=== PATIENT | female | born 2000 | race Caucasian/White ===

== ENCOUNTER 2022-08-09 20:05 | Emergency (ER) | payer SELFPAY ==
[2022-08-09 20:06] VITALS: BP 149/110; PULSE 80; RESP 16; TEMP 36.2; O2SAT 100; BMI 36.0
--- NOTE | 2022-08-09 20:21 | RAD_ITS ---
STUDY: X-RAY CHEST REASON FOR EXAM: Female, 22 years old. Chest pain while breathing. Cough for one week. TECHNIQUE: PA and lateral views of the chest. COMPARISON: None. FINDINGS: The lungs are clear and expanded. There is no demonstrated pleural abnormality. Normal size heart. Normal mediastinum and artie. Normal visualized pulmonary arteries. Normal visualized aortic arch and descending thoracic aorta. Normal visualized thoracic spine. Normal visualized ribs, clavicles, and shoulders. There is no demonstrated abnormality of the visualized soft tissue structures of the upper abdomen. RAD/Chest PA and Lateral IMPRESSION: No acute cardiopulmonary disease. Electronically Signed: Jose Luciano DO at 20:38 EST ,
--- NOTE | 2022-08-09 20:41 | EDS_ITS ---
HPI <JUANCARLOS Wise - Last Filed: 08/09/22 20:53> History of Present Illness Chief Complaint: Chest Other Narrative Narrative: 22-year-old female with no past medical history, tobacco use presents with 1 week of dry cough. She states she will cough somewhat she has posttussive emesis. 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 It still hurts if she takes a deep breath. She has not been short of breath this week. No fever or chills. She smokes around 1/2 PPD. PFSH <JUANCARLOS Wise Last Filed: 08/09/22 20:53> PFSH Home Medications Ventolin HFA 90 mcg/actuation aerosol inhaler (albuterol sulfate) 1 - 2 puff inhalation Q4H PRN PRN wheezing #8 grams 08/09/22 [Rx Last Taken Unknown] benzonatate 200 mg capsule 200 mg PO BID PRN cough 7 days #14 caps 08/09/22 [Rx Last Taken Unknown] Allergy/AdvReac Type Severity Reaction Status Date / Time No Known Allergies Allergy Verified 08/09/22 20:07 Social History Smoking Status: Never smoker ROS <JUANCARLOS Wise Last Filed: 08/09/22 20:53> ROS ED ROS Narrative Constitutional: Negative for fever, chills, malaise. Eyes: Negative for visual change. ENT: Negative for sore throat, ear pain, rhinorrhea. CVS: Positive for chest pain. Negative for palpitations, syncope. Respiratory: Positive for cough. Negative for shortness of breath, orthopnea. GI: Negative for abdominal pain, diarrhea. : Negative for dysuria, hematuria or frequency. Neuro: Negative for headache, motor/sensory dysfunction. Skin: Negative for rash, abscess, or wound. Musc: Negative for joint pain, swelling, trauma. Heme: Negative for easy bruising, bleeding, lymphadenopathy. EXAM <JUANCARLOS Wise Last Filed: 08/09/22 20:53> Physical Exam Narrative Exam Narrative: CONST: Patient sitting in no acute distress. EYES: Normal inspection. ENT: Normal inspection, moist mucous membranes. NECK: Normal inspection. RESP: No respiratory distress, CTAB. Dry cough throughout exam. Chest wall nontender. CVS: Regular rate and rhythm, no murmur, no gallop. ABD: Soft and nontender, no guarding or rebound, nondistended. SKIN: Color normal, no rash, warm, dry, intact. EXTREMITIES: Normal appearance, no pedal edema. NEURO: Oriented x4. PSYCH: Normal affect. Const Vital Signs: 08/09/22 20:06 08/09/22 20:53 Temperature 97.2 F L Temperature Source Temporal Pulse Rate 80 75 Respiratory Rate 16 17 Blood Pressure 149/110 H 122/76 H Blood Pressure Mean 123 Pulse Ox 100 Oxygen Delivery Method Room Air <Fernando Devries MD - Last Filed: 08/09/22 22:54> Physical Exam Const Vital Signs: 08/09/22 20:06 08/09/22 20:53 Temperature 97.2 F L Temperature Source Temporal Pulse Rate 80 75 Respiratory Rate 16 17 Blood Pressure 149/110 H 122/76 H Blood Pressure Mean 123 Pulse Ox 100 Oxygen Delivery Method Room Air MDM <JUANCARLOS Wise - Last Filed: 08/09/22 20:53> [facility] Narrative Medical decision making narrative: Patient has had 1 week of dry cough today after a coughing spell developed chest pain and bilateral rib pain. She appears well and nontoxic. BP in triage was 149/110 however I rechecked it and it is 120/88. Other vital signs are normal, 100% on room air. She is speaking in full sentences in no distress and all lung villanueva are clear. CXR shows no acute process. Since pain started after coughing it is likely muscular in nature. I recommended [id number] analgesia, smoking cessation, and prescribed Tessalon Perles and an MDI inhaler. Patient discharged in stable condition. Radiography Chest X-Ray - ED: 1 View, 2 View, Read by ED Physician, Read by Radiologist, Normal, Heart, Lungs, Mediastinum, Bony Structures and No Acute Disease Diagnostic Testing: Clinical Impression(s) from Imaging Studies Chest X-Ray 08/09/22 20:21 IMPRESSION: No acute cardiopulmonary disease. Electronically Signed: Jose Luciano DO at 20:38 EST Reading Location ID and State: [address] [place] [address] Tel [phone], Service support , ED attending interpretation of 2 view chest shows normal heart size, no acute infiltrate, edema, or effusion. <Fernando Devries MD - Last Filed: 08/09/22 22:54> [facility] Narrative Medical decision making narrative: Patient has had 1 week of dry cough today after a coughing spell developed chest pain and bilateral rib pain. She appears well and nontoxic. BP in triage was 149/110 however I rechecked it and it is 120/88. Other vital signs are normal, 100% on room air. She is speaking in full sentences in no distress and all lung villanueva are clear. CXR, interpreted by the ED physician, shows no evidence of pneumonia, no pneumothorax, shows no acute process. Since pain started after coughing it is likely muscular in nature. I recommended tiuu-jwq-hjopmbn analgesia, smoking cessation, and prescribed Tessalon Perles and an MDI inhaler. Patient discharged in stable condition. I have personally performed a face to face assessment of the patient and have reviewed the BOZENA Note. I performed a substantive portion of the visit including all aspects of the following. My reagan findings include: History is dry cough x1 week, recent URI. Chest and rib pain with coughing. Exam is afebrile. Vital signs noted. No crepitance. Lungs clear to auscultation bilaterally, no wheezing. Medical Decision Making chest x-ray interpreted by myself shows no acute process, no pneumonia. Albuterol MDI for bronchospasm and cough along with Tessalon Perles. Follow-up primary care. Other additions or changes: [None] Radiography Diagnostic Testing: Clinical Impression(s) from Imaging Studies Chest X-Ray 08/09/22 20:21 IMPRESSION: No acute cardiopulmonary disease. Electronically Signed: Jose Luciano DO at 20:38 EST Reading Location ID and State: [address] [place] [address] Tel [phone], Service support , Discharge Plan Triage Chief Complaint: Chest Other ED Midlevel Provider: Diamond Johnson ED Provider: Fernando Devries Dx/Rx/DC Orders Clinical Impression: Viral upper respiratory infection, Chest pain Instructions: ED URI, Viral, No Abx (Adult) Prescriptions: New albuterol sulfate [Ventolin HFA] 90 mcg/actuation HFA aerosol inhaler 1 - 2 puff inhalation Q4H PRN PRN (Reason: wheezing) Qty: 8 0RF Rx Instructions: with spacer benzonatate 200 mg capsule 200 mg PO BID PRN (Reason: cough) 7 Days Qty: 14 0RF Rx Instructions: whatever capsule strength you have in stock is fine Primary Care Provider: Care Physician,No Primary Referrals: NOT,DEFINED [Non-Staff] - Activity Restrictions/Additional Instructions: Your chest x-ray no pneumonia. I suspect you have bronchitis which is from a viral infection. I prescribed Tessalon Perles which is a cough suppressant and an inhaler to use as needed. If symptoms significantly worsen come back to the ER. It can take several days to even a month to have bronchitis clear. Please stop smoking as this will help significantly. Disposition Disposition: Home, Self Care Discharge Date/Time: 08/09/22 20:55
[2022-08-09 20:53] VITALS: BP 122/76; PULSE 75; RESP 17
== END 2022-08-09 20:55 | disposition home or self-care (01) ==
PROVIDERS: Emergency Provider Emergency Medicine; Visit Provider Emergency Medicine
DX: J06.9 Acute upper respiratory infection, unspecified (principal); R07.9 Chest pain, unspecified; R11.10 Vomiting, unspecified; F17.210 Nicotine dependence, cigarettes, uncomplicated
CPT/HCPCS: 71046; 99282

== ENCOUNTER 2024-10-05 14:13 | Emergency (ER) | payer SELFPAY ==
[2024-10-05 14:14] VITALS: BP 149/108; PULSE 118; RESP 20; TEMP 37.2; O2SAT 95; BMI 35.9
--- NOTE | 2024-10-05 14:14 | RAD_ITS ---
STUDY: X-RAY CHEST REASON FOR EXAM: Female, 24 years old. SOB TECHNIQUE: Single AP portable view of the chest. COMPARISON: None. FINDINGS: Increased markings in the right infrahilar region. This may represent focal infiltrate. Follow-up recommended. There is no demonstrated pleural abnormality. Normal size heart. Normal mediastinum and artie. Normal visualized pulmonary arteries. Normal visualized aortic arch and descending thoracic aorta. Normal visualized thoracic spine. Normal visualized ribs, clavicles, and shoulders. There is no demonstrated abnormality of the visualized soft tissue structures of the upper abdomen. RAD/Chest 1 View IMPRESSION: Findings suggestive of right infrahilar infiltrate. Electronically Signed: Stas Edmond MD at 14:32 EST ,
--- NOTE | 2024-10-05 15:03 | EX.ED.DYSGE1 ---
HPI History of Present Illness Chief Complaint: General Illness Informant: patient Narrative Narrative: 24-year-old female presenting to the emergency room with wheezing and fever. Patient states she was doing well yesterday in the evening hours suddenly became ill. She notes a cough occasionally productive, wheezing dyspnea and fever. She had Tylenol prior to coming to the hospital. She notes a slight amount of diarrhea. No vomiting no significant sore throat. No otalgia. No rashes. She notes that she used an inhaler that she had from prior bronchitis infections. She does not have a history of asthma but states she has wheezed with prior infections [facility] Medical History no medical history Home Medications ?Medication ?Instructions ?Recorded ?Last Taken ?Type Ventolin HFA 90 mcg/actuation 1 - 2 puff inhalation Q4H PRN PRN 08/09/22 Unknown Rx aerosol inhaler (albuterol sulfate) wheezing #8 grams albuterol sulfate 90 mcg/actuation 2 puff inhalation Q3H PRN Wheezing 10/05/24 Unknown Rx aerosol inhaler (Ventolin HFA) ##1 doxycycline monohydrate 100 mg 100 mg PO BID #20 CAPSULES 10/05/24 Unknown Rx capsule Allergy/AdvReac Type Severity Reaction Status Date / Time No Known Allergies Allergy Verified 10/05/24 14:17 Family History no significant family his Surgical History no surgical history Social History Smoking Status: Never smoker ROS ROS ED Constitutional Constitutional ED: Reports chills and fever(s); Denies weight loss Eyes Eyes: Denies change in vision or diplopia ENT ENT ED: Reports rhinorrhea; Denies ear pain or sore throat Cardiovascular Cardiovascular: Denies chest pain, orthopnea, palpitations or racing heartbeat Respiratory/Chest Respiratory/Chest: Reports cough, dyspnea, dyspnea on exertion and sputum; Denies orthopnea Gastrointestinal Gastrointestinal: Denies abdominal pain, diarrhea, nausea or vomiting Genitourinary Genitourinary ED: Denies dysuria, hematuria or urinary frequency Musculoskeletal Musculoskeletal: Denies arthralgias or myalgias Integumentary Denies abscess or rash Neurologic Neurologic: Denies headache(s) or weakness Psychiatric Psychiatric: Denies anxiety, depression, suicidal ideation or suicidal thoughts Endocrine Endocrinology: Denies polydipsia, polyphagia or polyuria Allergic/Immunologic Allergic/Immunologic ED: Denies mouth swelling, tongue swelling or urticaria EXAM Physical Exam Const Vital Signs: 10/05/24 14:14 10/05/24 15:15 Temperature 98.9 F Temperature Source Oral Pulse Rate 118 H 112 H Respiratory Rate 20 H 16 Blood Pressure 149/108 H Blood Pressure Mean 121 Pulse Ox 95 Oxygen Delivery Method Room Air Positive well nourished and well developed General Appearance ED: well developed and NAD HEENT Reports normocephalic, head/scalp atraumatic and moist mucous membranes HEENT Narrative: Mild turbinate edema Eyes PERRL and EOMs intact bilaterally Neck no lymphadenopathy, supple and no JVD Resp normal respiratory effort Auscultation: wheezes expiratory wheezes and inspiratory wheezes Cardio regular rate, regular rhythm and no murmurs Rate: tachycardic GI normal to inspection, nondistended, normoactive bowel sounds and non-tender Palpation: soft Back/Spine no CVA tenderness and normal ROM Extremity normal to inspection General Extremety ED: Negative for edema General Extremity: Negative for edema Neuro oriented x3 and CN's II-XII intact bilaterally Sensorium / Orientation: alert Motor Exam: strength 5/5 throughout Psych mental status grossly normal Mood & Affect: Negative for depressed or tearful Skin no rashes or lesions noted and no wounds MDM MDM MDM Narrative Medical decision making narrative: Differential diagnosis includes but not limited to acute bronchitis bronchospasm pneumonia viral syndrome hypoxia My independent interpretation the chest x-ray is right middle lobe infiltrate. Patient received a DuoNeb and albuterol aerosol. Lung sounds are significantly improved but still with some expiratory wheeze. COVID influenza and RSV swabs were negative. Patient is not hypoxic. She is otherwise clinically appearing well. Will be treating her with doxycycline I will write for a new inhaler should she require it but she has greater than 100 puffs left on her current inhaler. We talked about using some prednisone as she has had wheezing before but does not carry a diagnosis of asthma or COPD. In an effort to not suppress her immune system we will hold at this time but the patient was advised that if she is worsening or not improving she should be reevaluated and at that time we can revisit the possibility of adding steroids. History & Record Review Discussion w/independent historian: Patient Lab Data Attestation: I reviewed the patient's lab results. Radiography Diagnostic Testing: Clinical Impression(s) from Imaging Studies Chest X-Ray 10/05/24 14:14 IMPRESSION: Findings suggestive of right infrahilar infiltrate. Electronically Signed: Stas Edmond MD at 14:32 EST , Discharge Plan Triage Chief Complaint: General Illness ED Provider: Preston Cuenca Dx/Rx/DC Orders Clinical Impression: Pneumonia, Acute bronchospasm Instructions: ED Pneumonia (Adult) Prescriptions: New doxycycline monohydrate 100 mg capsule 100 mg PO BID Qty: 20 0RF albuterol sulfate [Ventolin HFA] 90 mcg/actuation HFA aerosol inhaler 2 puff inhalation Q3H PRN (Reason: Wheezing) Qty: 1 0RF Rx Instructions: with spacer No Action albuterol sulfate [Ventolin HFA] 90 mcg/actuation HFA aerosol inhaler 1 - 2 puff inhalation Q4H PRN PRN (Reason: wheezing) Qty: 8 0RF Rx Instructions: with spacer Primary Care Provider: Care Physician,No Primary Referrals: Madhav Syed MD [Med Staff - Instructor Product Inspection] - As Needed (for primary care ) Care Physician,No Primary [Primary Care Provider] - Print Language: Azerbaijani Disposition Disposition: Home, Self Care
[2024-10-05] MEDS: Albuterol 2.5 MG/3 ML VIAL.NEB. INHALATION (15:12)
[2024-10-05] MEDS: Ipratropium/Albuterol Sulfate 3 ML AMPUL.NEB INHALATION (15:12)
[2024-10-05 15:15] VITALS: PULSE 112; RESP 16
== END 2024-10-05 16:02 | disposition home or self-care (01) ==
PROVIDERS: Emergency Provider Emergency Medicine; Referring Provider Emergency Medicine; Visit Provider Emergency Medicine
DX: J18.9 Pneumonia, unspecified organism (principal); J98.01 Acute bronchospasm
CPT/HCPCS: 71045; 87631; 94640; 99282

== ENCOUNTER 2025-09-14 20:32 | Emergency (ER) | payer OTHER, SELFPAY ==
[2025-09-14 20:33] VITALS: BP 161/120; PULSE 95; RESP 18; TEMP 37.1; O2SAT 97; BMI 36.3
[2025-09-14 20:36] VITALS: BP 161/120; PULSE 95; RESP 18; TEMP 37.1; O2SAT 97
[2025-09-14 20:46] VITALS: O2SAT 98
--- NOTE | 2025-09-14 20:46 | EKG12_ITS ---
Test Reason : CHEST PAIN Blood Pressure : */* mmHG Vent. Rate : 76 BPM Atrial Rate : 76 BPM P-R Int : 170 ms QRS Dur : 78 ms QT Int : 354 ms P-R-T Axes : 60 42 34 degrees QTcB Int : 398 ms Normal sinus rhythm Normal ECG Confirmed by Jerry Allen ([id number]), film editor SABIHA AVILES ([id number]) on 09/21/2025 6:54:32 AM Referred By: KIZZY Confirmed By: Jerry Allen
--- NOTE | 2025-09-14 21:13 | RAD_ITS ---
PROCEDURE: CHEST PA AND LATERAL 09/14/2025 REASON FOR EXAM: PLEURITIC PAIN, PRODUCTIVE COUGH TECHNIQUE: Procedure Code: RADCXR Modality: DX Procedure: CHEST PA AND LATERAL FINDINGS: Lungs are clear. Normal mediastinal contours. No infiltrates or consolidation RAD/Chest PA and Lateral IMPRESSION: Negative chest Reading [facility]
--- NOTE | 2025-09-14 21:21 | EX.ED.DYSGE1 ---
HPI History of Present Illness Chief Complaint: Shortness of Breath Detail of Chief Complaint: Shortness of breath and chest discomfort x 1 week Informant: patient Onset/Context/Timing Onset: Weeks (Onset September 06) Context: Sudden Onset Timing: Intermittent and Waxes and wanes Quality: Congestion, postnasal drainage, sore throat and productive cough Location: Upper respiratory Current Severity: Mild Maximum Severity: Moderate Worsened by: Nothing specific Relieved by: Nothing Associated Symptoms Associated Symptoms: no fever or chills. Narrative Narrative: Patient is a 25-year-old female presents with cough that initially was nonproductive has been productive last couple days and appearance of cream from mushroom soup per patient. She also complains of rhinorrhea, congestion postnasal drainage. She has a sore throat initially. She no longer has a sore throat. She complains of subjective fever with chills. She denies headache visual, ocular auditory symptoms. Denies photophobia. Denies neck pain or neck stiffness. She denies rash. She denies abdominal pain, she denies nausea, vomiting or diarrhea. She denies dysuria, frequency, urgency or hematuria. She denies joint swelling. She denies myalgias or arthralgias. Her mother who is in the room was sick 1 week before her. Prior similar symptoms: No Recent Illness/Hospitalization: No PFSH PFSH Medical History no medical history Home Medications ?Medication ?Instructions ?Recorded ?Last Taken ?Type Ventolin HFA 90 mcg/actuation 1 - 2 puff inhalation Q4H PRN PRN 08/09/22 Unknown Rx aerosol inhaler (albuterol sulfate) wheezing #8 grams albuterol sulfate 90 mcg/actuation 2 puff inhalation Q3H PRN Wheezing 10/05/24 Unknown Rx aerosol inhaler (Ventolin HFA) ##1 doxycycline monohydrate 100 mg 100 mg PO BID #20 CAPSULES 10/05/24 Unknown Rx capsule Allergy/AdvReac Type Severity Reaction Status Date / Time No Known Allergies Allergy Verified 09/14/25 20:36 Family History no significant family his Surgical History no surgical history Social History Smoking Status: Former smoker ROS ROS ED Constitutional Constitutional ED: Reports chills, fever(s) and subjective; Denies sweats or weight loss Eyes Eyes: Denies blurry vision or change in vision ENT ENT ED: Reports rhinorrhea and sore throat; Denies ear pain Cardiovascular Cardiovascular: Reports chest pain and palpitations; Denies orthopnea, paroxysmal nocturnal dyspnea or racing heartbeat Respiratory/Chest Respiratory/Chest: Reports cough and sputum; Denies dyspnea, dyspnea on exertion, orthopnea or paroxysmal nocturnal dyspnea Gastrointestinal Gastrointestinal: Denies abdominal pain, diarrhea, melena, nausea or vomiting Genitourinary Genitourinary ED: Denies dysuria or hematuria Musculoskeletal Musculoskeletal: Denies arthralgias or myalgias Integumentary Denies rash Endocrine Endocrinology: Denies cold intolerance or heat intolerance Hematologic/Lymphatic Hematologic/Lymphatic: Reports systems reviewed and no addt'l complaints, except as documented EXAM Physical Exam Const Vital Signs: 09/14/25 20:33 09/14/25 20:36 09/14/25 20:46 Temperature 98.7 F 98.7 F Temperature Source Oral Oral Pulse Rate 95 95 Respiratory Rate 18 18 Respiratory Effort Normal Respiratory Depth Respiratory Pattern Blood Pressure 161/120 H 161/120 H Blood Pressure Mean 133 133 Pulse Ox 97 97 Oxygen Delivery Method Room Air Room Air 09/14/25 20:46 09/14/25 21:32 09/14/25 21:35 Temperature 98.1 F 98.1 F Temperature Source Oral Pulse Rate 77 77 Respiratory Rate 20 H 20 H Respiratory Effort Normal Short of Breath Respiratory Depth Normal Respiratory Pattern Normal Blood Pressure 149/100 H 149/100 H Blood Pressure Mean 116 116 Pulse Ox 99 99 Oxygen Delivery Method Room Air Room Air Positive well nourished and well developed Constitutional Narrative: BMI is 36.3. General Appearance ED: well developed and NAD; Negative for cyanotic, diaphoretic or pallor HEENT Reports TM's clear and moist mucous membranes HEENT Narrative: Head is atraumatic and normocephalic. Ears normal. TMs normal. Nares patent with clear drainage. Posterior pharynx erythema or exudate. Uvula midline. No deviation tongue protrusion. Tympanic Membrane ED: Yes TM's clear Eyes PERRL and EOMs intact bilaterally General Eye ED: Negative for pale conjunctiva or scleral icterus Neck no lymphadenopathy, supple and no JVD Chest Wall inspection of chest normal and palpation of chest normal Chest Narrative: Patient has pain to palpation over the left side of the chest wall. Resp normal respiratory effort and clear to auscultation bilaterally Cardio regular rate, regular rhythm, S1 normal heart sound, S2 normal heart sound and no murmurs GI normal to inspection, nondistended, normoactive bowel sounds, non-tender, non-distended and no masses; Negative for hepatosplenomegaly Extremity normal to inspection General Extremety ED: Negative for edema General Extremity: Negative for edema Neuro oriented x3 and CN's II-XII intact bilaterally Sensorium / Orientation: alert Psych mental status grossly normal Skin no rashes or lesions noted, no wounds and skin turgor normal General Skin Exam: Negative for jaundice or pallor MDM MDM MDM Narrative Medical decision making narrative: Differential diagnosis is viral upper respiratory infection/acute bronchitis versus pneumonia. Since she is PERC juicing colored sputum we will obtain chest x-ray. Per nurse protocol EKG was obtained. History & Record Review Additional record(s) reviewed:: Prior ED visit (Patient was seen September of this year by Dr. Leander Cuenca and I was practitioner July 2022 for chest pain.) and Prior labs Radiography Chest X-Ray - ED: 2 View, Read by ED Physician, Normal, Heart, Lungs, Mediastinum, Bony Structures and No Acute Disease EKG Initial EKG: Attestation: I personally reviewed and interpreted this EKG as follows: Interpretation: Sinus Rhythm (Rate of 76. EKG is normal. WV interval is 170 ms. Cures duration 78 ms. QT duration 254 ms and axis is normal.) Discharge Plan Triage Chief Complaint: Shortness of Breath Other Complaint: Chest Pain ED Provider: Obie Strong Dx/Rx/DC Orders Clinical Impression: Acute bronchitis, Pleurisy due to infection, Elevated blood-pressure reading without diagnosis of hypertension, Adult BMI 36.0-36.9 kg/sq m Instructions: ED Bronchitis, No Antibiotic (Adult), ED Hypertension, To Be Confirmed, ED Pleurisy Prescriptions: No Action albuterol sulfate [Ventolin HFA] 90 mcg/actuation HFA aerosol inhaler 1 - 2 puff inhalation Q4H PRN PRN (Reason: wheezing) Qty: 8 0RF Rx Instructions: with spacer doxycycline monohydrate 100 mg capsule 100 mg PO BID Qty: 20 0RF albuterol sulfate [Ventolin HFA] 90 mcg/actuation HFA aerosol inhaler 2 puff inhalation Q3H PRN (Reason: Wheezing) Qty: 1 0RF Rx Instructions: with spacer Stand Alone Forms: ED Work / School Excuse Primary Care Provider: Care Physician,No Primary Referrals: Madhav Syed MD [Med Staff - Tradeshow Worker, Family Practice] - 10-14 Days if not better Care Physician,No Primary [Primary Care Provider, Medical] Activity Restrictions/Additional Instructions: You need to follow-up with Dr. Syed who you referred to because your blood pressure is elevated. If it remains elevated you will need to be started on medications. Print Language: Spanish Disposition Disposition: Home, Self Care Discharge Date/Time: 09/14/25 22:02
[2025-09-14 21:32] VITALS: BP 149/100; PULSE 77; RESP 20; TEMP 36.7; O2SAT 99
--- OUTSIDE RECORDS SUMMARY | 2025-09-14 21:33 | XMS RPT_ITS | CCD ---
Author Organization [facility] Inform ion Partnership [facility] Care Team Providers Care Patient Care Specialist Name Role Phone Preston Cuneca Referring Unavailable Preston Cuenca Attending Unavailable Care Physician, No Primary Primary Care Unava ilable Medications Current Medications Medication Drug Class(es) Dates Sig (Normalized) Sig (Original) [id number] 200 actuat albuterol 0.09 mg/actuat metered dose inhaler (1 source) beta2-Adrenergic Agonist Start: 08-09-2022 take 1 puff(s) by inhalation every four hours as needed Albuterol Sulfate (Ventolin Hfa) 90 mcg/actuation HFA aerosol inhaler Active 1 - 2 PUFF INHALATION EVERY 4 HOURS NEEDED August 09, 2022 12:00am with spacer benzonatate 200 mg oral capsule (1 source) Non-narcotic Antitussive Start: 08-09-2022 take 1 capsule by mouth twice daily Benzonatate Active 200 MG PO TWICE A DAY 14 August 09, 2022 12:00am whatever capsule strength you have in stock is fine Problems Problem Classification Problem Date Documented Da te Episodic/Chronic Fever of unknown origin (1 source) Fever, unspecified; Translations: [Fever, unspecified] Onset: 10-24-2024 Episodic Nonspecific chest pain (1 source) Chest pain; Translations: [Chest pain, unspecified] Episodic Other upper respiratory infections (1 source) Viral upper respiratory tract infection; Translations: [Acute upper respiratory infection, unspecified] Episodic Results Test Name Value Interpretation Reference Range Facil ity Chest 1 Viewon 10-05-2024 Chest 1 View [facility] Imaging Services [address] [place], [place] [id number] Chest 1 View MR#: [id number] Acct: [id number] Name: HUSSAIN RAVI Rep #: [id number] : 2000 F 24 From: Stas samuel MD PCP: Care Physician,No Primary Status: PRE ER Study: Chest 1 View Date of Exam: 10/05/24 Exam# [id number] Ordering Dr: Bart Malik. [id number] STUDY: X-RAY CHEST REASON FOR EXAM: Female, 24 years old. SOB TECHNIQUE: Single AP portable view of the chest. COMPARISON: None. FINDINGS: Increased markings in the right infrahilar region. This may represent focal infiltrate. Follow-up recommended. There is no demonstrated pleural abnormality. Normal size heart. Normal mediastinum and artie. Normal visualized pulmonary arteries. Normal visualized aortic arch and descending thoracic aorta. Normal visualized thoracic spine. Normal visualized ribs, clavicles, and shoulders. There is no demonstrated abnormality of the visualized soft tissue structures of the upper abdomen. RAD/Chest 1 View IMPRESSION: Findings suggestive of right infrahilar infiltrate. Electronically Signed: Stas Edmond MD at 14:32 EST Reading Location ID and State: [address] [place] [address] , Service support , CC: ED PHYSICIAN PROVIDER; No Primary Care Physician Highway Research Engineer: Signed Normal [facility] Emergency Department Summary on 10-05-2024 Emergency Department Summary [facility] Medical Records Department [address] [place] [id number] Emergency Department Summary 10/05/24 MR#: [id number] Acct: [id number] Name: HUSSAIN RAVI Rep #: [id number] : 2000 From: Preston Cuenca DO PCP: Care Physician,No Primary Status:DEP ER Location: ED HPI History of Present Illness Chief Complaint: General Illness Informant: patient Narrative Narrative: 24-year-old female presenting to the emergency room with wheezing and fever. Patient states she was doing well yesterday in the evening hours suddenly became ill. She notes a cough occasionally productive, wheezing dyspnea and fever. She had Tylenol prior to coming to the hospital. She notes a slight amount of diarrhea. No vomiting no significant sore throat. No otalgia. No rashes. She notes that she used an inhaler that she had from prior bronchitis infections. She does not have a history of asthma but states she has wheezed with prior infections PFSH PFSH Medical History no medical history Home Medications ???Medication ???Instructions ???Recorded ???Last Taken ???Type Ventolin HFA 90 mcg/actuation 1 - 2 puff inhalation Q4H PRN PRN 08/09/22 Unknown Rx aerosol inhaler (albuterol sulfate) wheezing #8 grams albuterol sulfate 90 mcg/actuation 2 puff inhalation Q3H PRN Wheezing 10/05/24 Unknown Rx aerosol inhaler (Ventolin HFA) ##1 doxycycline monohydrate 100 mg 100 mg PO BID #20 CAPSULES 10/05/24 Unknown Rx capsule Allergy/AdvReac Type Severity Reaction Status Date / Time No Known Allergies Allergy Verified 10/05/24 14:17 Family History no significant family his Surgical History no surgical history Social History Smoking Status: Never smoker ROS ROS ED Constitutional Constitutional ED: Reports chills and fever(s); Denies weight loss Eyes Eyes: Denies change in vision or diplopia ENT ENT ED: Reports rhinorrhea; Denies ear pain or sore throat Cardiovascular Cardiovascular: Denies chest pain, orthopnea, palpitations or racing heartbeat Respiratory/Chest Respiratory/Chest: Reports cough, dyspnea, dyspnea on exertion and sputum; Denies orthopnea Gastrointestinal Gastrointestinal: Denies abdominal pain, diarrhea, nausea or vomiting Genitourinary Genitourinary ED: Denies dysuria, hematuria or urinary frequency Musculoskeletal Musculoskeletal: Denies arthralgias or myalgias Integumentary Denies abscess or rash Neurologic Neurologic: Denies headache(s) or weakness Psychiatric Psychiatric: Denies anxiety, depression, suicidal ideation or suicidal thoughts Endocrine Endocrinology: Denies polydipsia, polyphagia or polyuria Allergic/Immunologic Allergic/Immunologic ED: Denies mouth swelling, tongue swelling or urticaria EXAM Physical Exam Const Vital Signs: 10/05/24 14:14 10/05/24 15:15 Temperature 98.9 F Temperature Source Oral Pulse Rate 118 H 112 H Respiratory Rate 20 H 16 Blood Pressure 149/108 H Blood Pressure Mean 121 Pulse Ox 95 Oxygen Delivery Method Room Air Positive well nourished and well developed General Appearance ED: well developed and NAD HEENT Reports normocephalic, head/scalp atraumatic and moist mucous membranes HEENT Narrative: Mild turbinate edema Eyes PERRL and EOMs intact bilaterally Neck no lymphadenopathy, supple and no JVD Resp normal respiratory effort Auscultation: wheezes expiratory wheezes and inspiratory wheezes Cardio regular rate, regular rhythm and no murmurs Rate: tachycardic GI normal to inspection, nondistended, normoactive bowel sounds and non-tender Palpation: soft Back/Spine no CVA tenderness and normal ROM Extremity normal to inspection General Extremety ED: Negative for edema General Extremity: Negative for edema Neuro oriented x3 and CN's II-XII intact bilaterally Sensorium / Orientation: alert Motor Exam: strength 5/5 throughout Psych mental status grossly normal Mood Affect: Negative for depressed or tearful Skin no rashes or lesions noted and no wounds MDM MDM MDM Narrative Medical decision making narrative: Differential diagnosis includes but not limited to acute bronchitis bronchospasm pneumonia viral syndrome hypoxia My independent interpretation the chest x-ray is right middle lobe infiltrate. Patient received a DuoNeb and albuterol aerosol. Lung sounds are significantly improved but still with some expiratory wheeze. COVID influenza and RSV swabs were negative. Patient is not hypoxic. She is otherwise clinically appearing well. Will be treating her with doxycycline I will write for a new inhaler should she require it but she has greater than 100 puffs left on her current inhaler. We talked about using some prednisone as she has had (more content not included)... Normal [facility] M100.678on 10-05-2024 M100.678 Pending SARS-CoV-2 (COVID 19) Negative INFLUENZA A Negative INFLUENZA B Negative RSV PCR Negative Normal [facility] Comment on above: Performed By: #### M 100.678 #### [facility] [place], [address] Vital Signs Date Time Vital Sign Value Performing Clinician Sundeep mishra 08-09-2022 20:53-0500 Diastolic blood pressure 76 mm[Hg] [facility] Work Phone: 08-09-2022 20:53-0500 Heart rate 75 /min [facility] Work Phone: 08-09-2022 20:53-0500 Respiratory rate 17 /min [facility] Work Phone: 08-09-2022 20:53-0500 Systolic blood pressure 122 mm[Hg] [facility] Work Phone: 08-09-2022 20:06-0500 Body height 170.18 cm [facility] Work Phone: 08-09-2022 20:06-0500 Body mass index (BMI) [Ratio] 36 kg/m2 [facility] Work Phone: 08-09-2022 20:06-0500 Body temperature 97.2 [degF] [facility] Work Phone: 08-09-2022 20:06-0500 Body weight 104.32 kg [facility] Work Phone: 08-09-2022 20:06-0500 SaO2% (BldA) [Mass fraction] 100 % [facility] Work Phone: Encounters Encounter Date Encounter Type Care Provider Facility Start: 10-05-2024 End: 10-05-2024 Emergency department patient visit Preston Cuenca Facility:[facility] Start: 08-09-2022 End: 08-09-2022 Emergency department patient visit [facility]-Emergency Department Procedures Date Procedure Procedure Detail Performing Clinician Start: 08-09-2022 Plain chest X-ray Plan of Treatment Date Care Activity Detail Author Start: 08-09-2022 [facility] Work Phone: Patient Education ED URI, Viral, No Abx (Adult) [facility] Work Phone: Patient referral [facility] Work Phone: Payers Date Payer Category Payer Self-pay Unknown [id number] Social History Date Type Detail Facility Start: 08-09-2022 Tobacco smoking status NHIS Unknown if ever smoked [facility] Work Phone: Start: 2000 Sex Assigned At Female [facility] Work Phone: NEGATED: Highlighted row [facility] Work Phone: Mental Status Date Assessment Result Facility 08-09-2022 Cognitive function Level Of Cons ciousness Awake;Alert;Appropriate;Follow s Commands [facility] Work Phone: Evaluation note Note Date & Type Note Facility Evaluation note No assessment information availa ble [facility] Work Phone: Hospital Discharge instructions Note Date & Type Note Facility Hospital Discharge instructions Additional Instructions Your chest x-ray no pneumonia. I suspect you have bronchitis which is from a viral infection. I prescribed Tessalon Perles which is a cough suppressant and an inhaler to use as needed. If symptoms significantly worsen come back to the ER. It can take several days to even a month to have bronchitis clear. Please stop smoking as this will help significantly. [facility] Work Phone: Chief Complaint and Reason for Visit Chief Complaint CHEST OTHER Advance Directives No Advanced Directives Records Found Advance Directive Response Recorded Date/ Time Living Will No August 09 022 8:20pm Power of Carriage Rider No August 09, 2022 8:20pm Summary Purpose Family History No Family History Records Found Additional Source Comments Goals (unrecognized section and content) Goals may be documented in a n alternate section INFORMATION SOURCE (unrecogn ized section and content) DATE CREATED AUTHOR 10/26/2024 [facility] FOR RECORDS PERTAINING TO PATIENTS WHO ARE OR HAVE BEEN ENROLLED IN A CHEMICAL DEPENDENCY/SUBSTANCEABUSE PROGRAM, SOME INFORMATION MAY BE OMITTED. This clinical summary was aggregated from multiple sources. Caution should be exercised in using it in the provision of clinical care. This summary normalizes information from multiple sources, and as a consequence, information in this document may materially change the coding, format and clinical context of patient data. In addition, data may be omitted in some cases. CLINICAL DECISIONS SHOULD BE BASED ON THE PRIMARY CLINICAL RECORDS. [facility] [employer] [facility] provides no warranty or guarantee of the accuracy or completeness of information in this document.
[2025-09-14 21:35] VITALS: BP 149/100; PULSE 77; RESP 20; TEMP 36.7; O2SAT 99
== END 2025-09-14 22:02 | disposition home or self-care (01) ==
PROVIDERS: Emergency Provider Emergency Medicine; Visit Provider Emergency Medicine
DX: J20.9 Acute bronchitis, unspecified (principal); R09.1 Pleurisy; R03.0 Elevated blood-pressure reading, without diagnosis of hypertension; Z87.891 Personal history of nicotine dependence
CPT/HCPCS: 71046; 93005; 99283